=== PATIENT | male | born 1930 | race Caucasian/White ===

== ENCOUNTER 2020-12-13 17:34 | Emergency (ER) | payer OTHER, MEDICARE ==
[~2020-12-13] VITALS: Ht 177.8 cm; Wt 76.8 kg
[2020-12-13] MEDS ORDERED: HYDROcodone/acetaminophen 5mg/325mg tablet PO ONE (18:45)
[2020-12-13] MEDS ORDERED: HYDR-3965 PO (19:09)
[2020-12-13 20:19] VITALS: BP 149/61
--- NOTE | 2020-12-13 20:20 | NUR ---
PT ADVISED HIS XRAY WAS OK TO DISCHARGE AND WAS WALKING OUT DOOR AND FELL LANDING ON RIGHT SIDE AND CAUSING SOME ABRASIONS TO RIGHT HAND AND RIGHT KNEE. PT DENIES HITTING HEAD AND DENIES ANY OTHER INJURY. KRIS ZABALA TO RESCAN PT'S SHOULDER TO CONFIRM NO OTHER INJURY. PT A&OX4 AND DENIES ANY LOC
== END 2020-12-13 20:21 | disposition home or self-care (01) ==
LOC: ER 17:35
DX: S49.91XA Unspecified injury of right shoulder and upper arm, initial encounter (principal); S80.211A Abrasion, right knee, initial encounter; M25.511 Pain in right shoulder; Z79.899 Other long term (current) drug therapy; W19.XXXA Unspecified fall, initial encounter; Y93.89 Activity, other specified; Y92.89 Other specified places as the place of occurrence of the external cause; Y99.8 Other external cause status
CPT/HCPCS: 73030; 73110; 99284

== ENCOUNTER 2021-01-18 12:39 | Emergency (ER) | payer OTHER, MEDICARE ==
[~2021-01-18] VITALS: Ht 177.8 cm; Wt 76.8 kg
[2021-01-18 13:29] VITALS: BP 176/67
[2021-01-18 14:05] LABS: BASOPHILS # (AUTO) 0.1 X10'3 (0-0.2); BASOPHILS % (AUTO) 0.8 % (0-1); EOSINOPHILS # (AUTO) 0.2 X10'3 (0-0.9); EOSINOPHILS % (AUTO) 3.3 % (0-6); HEMATOCRIT 48.2 % (42.0-52.0); LYMPHOCYTES # (AUTO) 1.6 X10'3 (1.1-4.8); LYMPHOCYTES % (AUTO) 23.8 % (21-51); MEAN CORPUSCULAR HGB CONC 33.2 g/dL (33.0-36.5); MEAN CORPUSCULAR VOLUME 93.4 FL (78-98); MEAN PLATELET VOLUME 9.9 FL (7.4-10.4); MONOCYTES # (AUTO) 0.9 X10'3 (0-0.9); MONOCYTES % (AUTO) 13.6 % (2-12); NEUTROPHILS % (AUTO) 58.5 % (42-75); PLATELET COUNT 189 X10'3 (140-440); RED BLOOD COUNT 5.16 X10'6 (4.70-6.10); RED CELL DISTRIBUTION WIDTH 15.3 % (11.5-14.5); WHITE BLOOD COUNT 6.9 X10'3 (4.5-11.0)
[2021-01-18 14:17] LABS: ALANINE AMINOTRANSFERASE 21 U/L (12-78); ALBUMIN 3.7 G/DL (3.4-5.0); ALBUMIN/GLOBULIN RATIO 0.9 (1.1-1.5); ALKALINE PHOSPHATASE 69 IU/L (46-116); ANION GAP 6 (8-16); ASPARTATE AMINO TRANSFERASE 17 U/L (10-37); BILIRUBIN,TOTAL 0.6 MG/DL (0.1-1.0); BLOOD UREA NITROGEN 17 MG/DL (7-18); BUN/CREATININE RATIO 16.5 (5.4-32.0); CALCIUM 9.6 MG/DL (8.5-10.1); CHLORIDE 105 MMOL/L (99-107); CREATININE 1.03 MG/DL (0.60-1.10); GLUCOSE 110 MG/DL (70-104); POTASSIUM 4.4 MMOL/L (3.5-5.1); SODIUM 141 MMOL/L (135-145); TOTAL CARBON DIOXIDE 29.9 MMOL/L (24-32); TOTAL PROTEIN 7.7 G/DL (6.4-8.2); eGFR 68 ML/MIN
== END 2021-01-18 17:26 | disposition left against medical advice (07) ==
LOC: ER 12:40
DX: R42 Dizziness and giddiness (principal)
CPT/HCPCS: 36415; 71045; 80053; 84484; 85025; 93005; 99285